=== PATIENT | female | born 1965 | race Caucasian/White ===

== ENCOUNTER 2016-09-18 00:55 | Emergency (ER) | payer SELFPAY ==
[~2016-09-18] VITALS: Ht 165.1 cm; Wt 69.0 kg
[2016-09-18] MEDS ORDERED: HYDROCODONE/ACETAMINOPHEN 5/325MG TABLET PO ONE (03:15)
[2016-09-18] MEDS ORDERED: ACYCLOVIR 400 MG TABLET PO ONE (03:15)
[2016-09-18 04:13] VITALS: BP 119/66
== END 2016-09-18 05:02 | disposition home or self-care (01) ==
LOC: ER 00:57
DX: B02.9 Zoster without complications (principal); R21 Rash and other nonspecific skin eruption
CPT/HCPCS: 99283